=== PATIENT | male | born 1990 | race Caucasian/White ===

== ENCOUNTER 2016-09-01 17:46 | Emergency (ER) | payer OTHER ==
[2016-09-01 18:22] VITALS: BMI 22.8
[2016-09-01 18:41] LABS: AUTOMATED BASOPHIL 0.7 % (0-2); AUTOMATED LYMPH 25.7 % (17-44); AUTOMATED MONOCYTE 12.4 % (3-10); AUTOMATED NEUTROPHIL 59.2 % (45-76); MPV 7.3 fL (7.4-10.4)
[2016-09-01 18:58] LABS: LEUKOCYTES/URINE NEG (NEGATIVE); NITRITE/URINE NEG (NEGATIVE); URINE OCCULT BLOOD 2+ (NEG/TRACE); WBC/URINE 0-2 (0-2)
[2016-09-01 19:03] LABS: BLOOD UREA NITROGEN 7 MG/DL (9-20); CALCIUM 10.2 MG/DL (8.4-10.2); CALCULATED OSMOLALITY 267 MOs/Kg (270-290); CHLORIDE 101 mEq/L (98-107); GLUCOSE 90 MG/DL (70-99); SODIUM LEVEL 140 mEq/L (137-146)
--- NOTE | 2016-09-01 19:14 | EDPRACDOC ---
- General Information Chief Complaint: Abdominal Pain Stated Complaint: ABD PAIN COLD SWEATS Time Seen by Provider: 09/01/16 19:08 Information Source: Patient Mode Of Arrival: Car Home Medications: Home Medications Ondansetron [Zofran Odt] 4 mg PO TID PRN #10 tab.rapdis 09/01/16 Tramadol HCl 50 mg PO Q6 #8 tablet 09/01/16 Allergies/Adverse Reactions: Allergies Allergy/AdvReac Type Severity Reaction Status Date / Time No Known Allergies Allergy Verified 09/01/16 18:19 - History of Present Illness Onset: last night HPI: C/o periumbilical and epigastric pain with strange periumbilical "bump" and shivering starting last night. Pain is worse with movement. Mild N/V this am. [place] hot last night. Also c/o inc urinary freq. Denies cp, sob, cough, sore throat, diarrhea, change in BM. Med hx = IBD. Abdominal surgical hx = none. Pain Location: Reports: Epigastric, Periumbilical Pain Context: Reports: Spontaneous Pain Severity: Moderate Pain Quality: Reports: Sharp Pain Radiation: Reports: No Radiation Adult Abdominal History: Denies: Abdominal Surgery, Urolithiasis, Bowel Obstruction Modifying Factors: improves with: Movement (worse) Associated Signs & Symptoms: Reports: Nausea, Frequency, Vomiting Oral Intake: Decreased ED Past Medical History - History Reviewed Yes Nurses notes reviewed and agree except as marked - Patient Medical History Psychological History: Denies: Depression - Social Medical History Smoking Status: Heavy tobacco smoker (5 or more cigarettes/day or daily pipe/ cigar) EDM Review of Systems - Review of Systems ROS Negative Except as Marked: Yes All systems reviewed and were negative except as marked Gastrointestinal: Nausea, Pain, Vomiting Genitourinary: Frequency - Physical Exam Constitutional: Alert Oriented to: Time, Person, Place Last recorded Vital Signs: Last Vital Signs Temp 98.6 F 09/01/16 21:40 Pulse 80 09/01/16 21:40 Resp 20 09/01/16 21:40 BP 106/57 L 09/01/16 21:40 Pulse Ox 98 09/01/16 21:40 Oxygen Pulse Oxygen Saturation 98 O2 Device Room Air Oxygen Flow Rate Fraction of Inspired Oxygen ( FIO2) - HEENT Head: Normal Eye Exam: negative: Conjunctival Injection, Scleral Icterus Oropharynx: negative: Drooling TMJ: Normal Nose: No Symptoms Reported Neck: Normal - Respiratory/Cardiovascular Respiratory: Normal - CTA Cardiovascular: Normal - GI Auscultation: Normal Palpation: Normal Tenderness: Moderate, RUQ, RLQ, Epigastric, Periumbilical - Musculoskeletal Back: Normal Extremities: Normal - Integumentary Skin: Normal - Neurologic Mood Description: Normal Thought: Coherent Perception: Normal Other Exam Findings: palpation of RUQ and RLQ makes periumbilical pain worse. - Results 09/01/16 18:20 09/01/16 18:20 WBC 16.1 xk/uL (3.8-10.8) H 09/01/16 18:20 RBC 5.40 xM/uL (4.70-6.10) 09/01/16 18:20 Hgb 16.0 g/dL (14.0-18.0) 09/01/16 18:20 Hct 47.0 % (42-52) 09/01/16 18:20 MCV 87 fL (80-94) 09/01/16 18:20 MCH 29.7 pg (27-32) 09/01/16 18:20 MCHC 34.1 g/dl (33-36) 09/01/16 18:20 RDW 12.8 % (11.5-14.5) 09/01/16 18:20 Plt Count 241 xk/uL (130-400) 09/01/16 18:20 MPV 7.3 fL (7.4-10.4) L 09/01/16 18:20 Neut % (Auto) 59.2 % (45-76) 09/01/16 18:20 Lymph % (Auto) 25.7 % (17-44) 09/01/16 18:20 [place] % (Auto) 12.4 % (3-10) H 09/01/16 18:20 Eos % (Auto) 2.0 % (0-5) 09/01/16 18:20 Baso % (Auto) 0.7 % (0-2) 09/01/16 18:20 Absolute Neuts (auto) 9.50 xk/uL (1.7-8.2) H 09/01/16 18:20 Absolute Lymphs (auto) 4.03 xk/uL (0.65-4.75) 09/01/16 18:20 Sodium 140 mEq/L (137-146) 09/01/16 18:20 Potassium 4.1 mEq/L (3.5-5.1) 09/01/16 18:20 Chloride 101 mEq/L (98-107) 09/01/16 18:20 Carbon Dioxide 27 mMOL/L (22-33) 09/01/16 18:20 Anion Gap 16 mEq/L (8-16) 09/01/16 18:20 BUN 7 MG/DL (9-20) L 09/01/16 18:20 Creatinine 0.90 MG/DL (0.66-1.25) 09/01/16 18:20 Estimated GFR (MDRD) > 60 mL/min (>=60) 09/01/16 18:20 Glucose 90 MG/DL (70-99) 09/01/16 18:20 Calculated Osmolality 267 MOs/Kg (270-290) L 09/01/16 18:20 Calcium 10.2 MG/DL (8.4-10.2) 09/01/16 18:20 Total Bilirubin 0.4 MG/DL (0.2-1.3) 09/01/16 18:20 AST 21 IU/L (17-59) 09/01/16 18:20 ALT 29 IU/L (21-72) 09/01/16 18:20 Alkaline Phosphatase 88 IU/L (38-126) 09/01/16 18:20 Total Protein 8.0 G/DL (6.3-8.2) 09/01/16 18:20 Albumin 4.7 G/DL (3.5-5.0) 09/01/16 18:20 Lipase 47 U/L (23-300) 09/01/16 18:20 Urine Color Pale yell0w 09/01/16 18:20 Urine Clarity Clear 09/01/16 18:20 Urine pH 7.0 (5.0-8.0) 09/01/16 18:20 Ur Specific [place] 1.005 (1.003-1.035) 09/01/16 18:20 Urine Protein Neg (NEG/TRACE) 09/01/16 18:20 Urine Glucose (UA) Neg (NEGATIVE) 09/01/16 18:20 Urine Ketones Neg (NEGATIVE) 09/01/16 18:20 Urine Occult Blood 2+ (NEG/TRACE) H 09/01/16 18:20 Urine Nitrite Neg (NEGATIVE) 09/01/16 18:20 Urine Bilirubin Neg (NEGATIVE) 09/01/16 18:20 Urine Urobilinogen <2.0 MG/DL (0-1) 09/01/16 18:20 Ur Leukocyte Esterase Neg (NEGATIVE) 09/01/16 18:20 Urine RBC 2-5 (0-2) H 09/01/16 18:20 Urine WBC 0-2 (0-2) 09/01/16 18:20 Urine Mucus Occ (NEG/OCC) 09/01/16 18:20 Lab Results 09/01/16 09/01/16 09/01/16 18:20 18:20 18:20 WBC 16.1 H RBC 5.40 Hgb 16.0 Hct 47.0 MCV 87 MCH 29.7 MCHC 34.1 RDW 12.8 Plt Count 241 MPV 7.3 L Neut % (Auto) 59.2 Lymph % (Auto) 25.7 [place] % (Auto) 12.4 H Eos % (Auto) 2.0 Baso % (Auto) 0.7 Absolute Neuts (auto) 9.50 H Absolute Lymphs (auto) 4.03 Sodium 140 Potassium 4.1 Chloride 101 Carbon Dioxide 27 Anion Gap 16 BUN 7 L Creatinine 0.90 Estimated GFR (MDRD) > 60 Glucose 90 Calculated Osmolality 267 L Calcium 10.2 Total Bilirubin 0.4 AST 21 ALT 29 Alkaline Phosphatase 88 Total Protein 8.0 Albumin 4.7 Lipase 47 Urine Color Urine Clarity Urine pH Ur Specific [place] Urine Protein Urine Glucose (UA) Urine Ketones Urine Occult Blood Urine Nitrite Urine Bilirubin Urine Urobilinogen Ur Leukocyte Esterase Urine RBC Urine WBC Urine Mucus 09/01/16 18:20 WBC RBC Hgb Hct MCV MCH MCHC RDW Plt Count MPV Neut % (Auto) Lymph % (Auto) [place] % (Auto) Eos % (Auto) Baso % (Auto) Absolute Neuts (auto) Absolute Lymphs (auto) Sodium Potassium Chloride Carbon Dioxide Anion Gap BUN Creatinine Estimated GFR (MDRD) Glucose Calculated Osmolality Calcium Total Bilirubin AST ALT Alkaline Phosphatase Total Protein Albumin Lipase Urine Color Pale yell0w Urine Clarity Clear Urine pH 7.0 Ur Specific [place] 1.005 Urine Protein Neg Urine Glucose (UA) Neg Urine Ketones Neg Urine Occult Blood 2+ H Urine Nitrite Neg Urine Bilirubin Neg Urine Urobilinogen <2.0 Ur Leukocyte Esterase Neg Urine RBC 2-5 H Urine WBC 0-2 Urine Mucus Occ - Diagnostic Imaging Abdomen Image interpreted by: Radiologist 09/01/16 20:42 EXAM: CT ABDOMEN AND PELVIS WITH CONTRAST TECHNIQUE: Multidetector CT imaging of the abdomen and pelvis was performed using the standard protocol following bolus administration of intravenous contrast. CONTRAST: 100 mL Isovue 370 COMPARISON: 11/11/2015 FINDINGS: Lung bases are clear. The liver, spleen, gallbladder, pancreas, adrenal glands, kidneys, abdominal aorta, inferior vena cava, and retroperitoneal lymph nodes are unremarkable. Stomach, small bowel, and colon are not abnormally distended. Stool fills the colon without wall thickening. The small bowel are diffusely fluid-filled without distention or wall thickening. This may indicate enteritis. Scattered mesenteric lymph nodes are moderately prominent possibly indicating reactive change. No free air or free fluid in the abdomen. Abdominal wall musculature appears intact. Pelvis: The appendix is normal. Prostate gland is not enlarged. Bladder wall is not thickened. No free or loculated pelvic fluid collections. No evidence of diverticulitis. No destructive bone lesions. IMPRESSION: Fluid-filled nondistended small bowel may indicate enteritis. No bowel wall thickening. No evidence of obstruction. Electronically Signed By: William White M.D. On: 09/01/2016 20:20 Decision Time to Discharge: 20:42 - Departure Disposition: Home Condition: Stable Final Diagnosis: Enteritis Instructions: Gastroenteritis (ED) Referrals: Emilia Kevin NP [Primary Care Provider] - One Week Prescriptions: Ondansetron [Zofran Odt] 4 mg PO TID PRN #10 tab.rapdis PRN Reason: Nausea/Vomiting Tramadol HCl 50 mg PO Q6 #8 tablet Forms: Excuse Note Additional Instructions: Follow up with primary care. Take zofran for nausea. Take tramadol for pain. Return to Ed for any new or worsening symptoms.
[2016-09-01] MEDS ORDERED: MORPHINE 4 MG/ML INJECTION IV ONE ×2 (19:24→20:53)
[2016-09-01] MEDS ORDERED: NS 1,000 ML IV ONE (19:24)
[2016-09-01] MEDS ORDERED: ONDANSETRON HCL 4 MG/2 ML VIAL IV ONE (19:24)
[2016-09-01] MEDS ORDERED: Pharmacy Review for Metformin - IV Contrast Given SCH (20:00)
--- NOTE | 2016-09-01 20:22 | DIRPT ---
CLINICAL DATA: Mid abdominal pain and fever. Nausea and vomiting for 24 hours. EXAM: CT ABDOMEN AND PELVIS WITH CONTRAST TECHNIQUE: Multidetector CT imaging of the abdomen and pelvis was performed using the standard protocol following bolus administration of intravenous contrast. CONTRAST: 100 mL Isovue 370 COMPARISON: 11/11/2015 FINDINGS: Lung bases are clear. The liver, spleen, gallbladder, pancreas, adrenal glands, kidneys, abdominal aorta, inferior vena cava, and retroperitoneal lymph nodes are unremarkable. Stomach, small bowel, and colon are not abnormally distended. Stool fills the colon without wall thickening. The small bowel are diffusely fluid-filled without distention or wall thickening. This may indicate enteritis. Scattered mesenteric lymph nodes are moderately prominent possibly indicating reactive change. No free air or free fluid in the abdomen. Abdominal wall musculature appears intact. Pelvis: The appendix is normal. Prostate gland is not enlarged. Bladder wall is not thickened. No free or loculated pelvic fluid collections. No evidence of diverticulitis. No destructive bone lesions. IMPRESSION: Fluid-filled nondistended small bowel may indicate enteritis. No bowel wall thickening. No evidence of obstruction. Electronically Signed By: William White M.D. On: 09/01/2016 20:20
[2016-09-01 21:41] VITALS: BP 106/57; PULSE 80; TEMP 98.6
== END 2016-09-01 21:40 | disposition home or self-care (01) ==
LOC: ED 17:46
DX: K52.9 Noninfective gastroenteritis and colitis, unspecified (principal); R10.13 Epigastric pain; R10.11 Right upper quadrant pain; R10.33 Periumbilical pain; R10.31 Right lower quadrant pain
CPT/HCPCS: 36415; 74177; 80053; 81001; 83690; 85025; 96361; 96374; 96375; 96376; 99284; A9698; J2270; J2405